=== PATIENT | female | born 1930 | race Caucasian/White ===

== ENCOUNTER 2017-11-05 19:06 | Inpatient (IN) | payer OTHER, MEDICAID ==
[~2017-11-05] VITALS: Ht 152.4 cm; Wt 83.5 kg
[2017-11-05 19:16] VITALS: BP 141/75
[2017-11-05 20:22] LABS: BASOPHILS % (AUTO) 0.7 % (0.0-2.0); EOSINOPHILS # (AUTO) 0.1 K/uL (0-0.4); EOSINOPHILS % (AUTO) 0.7 % (0.0-4.0); HEMATOCRIT 31.4 % (36-48); LYMPHOCYTES % (AUTO) 14.1 % (20.5-51.1); MEAN CORPUSCULAR HEMOGLOBIN 28 pg (27-31); MEAN CORPUSCULAR HGB CONC 32 g/dL (33-37); MEAN CORPUSCULAR VOLUME 87.8 fL (80-94); MONOCYTES # (AUTO) 0.7 K/uL (0.8-1.0); MONOCYTES % (AUTO) 10.3 % (1.7-9.3); NEUTROPHILS # (AUTO) 5.2 K/uL (1.8-7.7); NEUTROPHILS % (AUTO) 74.2 % (42.2-75.2); PLATELET COUNT (AUTO) 270 K/uL (140-450); RED BLOOD CELL COUNT(AUTO) 3.57 MIL/uL (4.20-5.40); RED CELL DISTRIBUTION WIDTH 15.5 % (11.6-13.7); WHITE BLOOD COUNT (AUTO) 7.1 K/uL (4.8-10.8)
[2017-11-05 20:32] LABS: ALBUMIN 3.7 g/dL (3.4-5.0); ASPARTATE AMINOTRANSFERASE 16 U/L (15-37); CARBON DIOXIDE 26.8 mmol/L (21-32); CHLORIDE 100 mmol/L (98-107); CREATININE 2.7 mg/dL (0.6-1.3); GLUCOSE 113 mg/dL (74-106); SODIUM SERUM 137 mmol/L (136-145); TOTAL BILIRUBIN 0.5 mg/dL (0.0-1.0); UREA NITROGEN, BLOOD 21 mg/dL (7-18)
[2017-11-05 20:37] LABS: ANION GAP 13.2 (8-16)
[2017-11-05] MEDS ORDERED: POTASSIUM CHLORIDE 10 MEQ TABER PO ONE (21:25)
[2017-11-05] MEDS ORDERED: LOVA10TA PO (21:51)
[2017-11-05] MEDS ORDERED: HYDR100T79 PO (21:51)
[2017-11-05] MEDS ORDERED: ISOS10TA9 PO (21:51)
[2017-11-05] MEDS ORDERED: FERR-252 PO (21:51)
[2017-11-05] MEDS ORDERED: VITD1000 PO (21:51)
[2017-11-05] MEDS ORDERED: ASPI81CT89 PO (21:51)
[2017-11-05] MEDS ORDERED: METO25TE2 PO (21:51)
[2017-11-05] MEDS ORDERED: OMEP20TC12 PO (21:51)
[2017-11-05] MEDS ORDERED: NACL 0.9% 1,000 ML IV SCH (21:56)
[2017-11-05] MEDS ORDERED: ACETAMINOPHEN 325 MG TAB PO PRN (22:00)
[2017-11-05] MEDS ORDERED: HYDROcodone/APAP 7.5/325 MG 1 TAB PO PRN (22:00)
[2017-11-05] MEDS ORDERED: ONDANSETRON 4 MG/2 ML VIAL IVP PRN (22:00)
[2017-11-05 22:31] LABS: PROTHROMBIN TIME 10.4 secs (10.8-13.4)
[2017-11-05 22:46] LABS: CHOL/HDL RATIO 2.5 (1-4.5); FREE T4 (FREE THYROXINE) 1.16 ng/dL (0.76-1.46); PHOSPHORUS 2.9 mg/dL (2.5-4.9); THYROID STIMULATING HORMONE 4.33 uIU/mL (0.34-3.74)
[2017-11-05 22:50] VITALS: BP 156/72
[2017-11-06] VITALS: BP 151/67
[2017-11-06 04:00] VITALS: BP 141/69
[2017-11-06 06:33] LABS: BASOPHILS % (AUTO) 0.6 % (0.0-2.0); EOSINOPHILS # (AUTO) 0.1 K/uL (0-0.4); EOSINOPHILS % (AUTO) 1.4 % (0.0-4.0); HEMATOCRIT 29.3 % (36-48); HEMOGLOBIN 9.6 g/dL (12.0-16.0); LYMPHOCYTES # (AUTO) 1.5 K/uL (2.5-16.5); LYMPHOCYTES % (AUTO) 29.9 % (20.5-51.1); MEAN CORPUSCULAR HEMOGLOBIN 30 pg (27-31); MEAN CORPUSCULAR HGB CONC 33 g/dL (33-37); MEAN CORPUSCULAR VOLUME 92.4 fL (80-94); MONOCYTES # (AUTO) 0.5 K/uL (0.8-1.0); MONOCYTES % (AUTO) 9.3 % (1.7-9.3); NEUTROPHILS % (AUTO) 58.8 % (42.2-75.2); PLATELET COUNT (AUTO) 248 K/uL (140-450); RED BLOOD CELL COUNT(AUTO) 3.17 MIL/uL (4.20-5.40); RED CELL DISTRIBUTION WIDTH 15.6 % (11.6-13.7); WHITE BLOOD COUNT (AUTO) 5.1 K/uL (4.8-10.8)
[2017-11-06 06:50] LABS: ANION GAP 14.3 (8-16); CARBON DIOXIDE 27.3 mmol/L (21-32); CHLORIDE 104 mmol/L (98-107); CREATININE 3.1 mg/dL (0.6-1.3); GLUCOSE 85 mg/dL (74-106); POTASSIUM 3.6 mmol/L (3.5-5.1); SODIUM SERUM 142 mmol/L (136-145); UREA NITROGEN, BLOOD 22 mg/dL (7-18)
[2017-11-06 06:58] LABS: PHOSPHORUS 3.3 mg/dL (2.5-4.9)
[2017-11-06 08:00] VITALS: BP 162/63
[2017-11-06] MEDS: VITAMIN B COMPLEX W/C 1 TAB PO SCH (09:02)
[2017-11-06] MEDS: VITAMIN D 400 IU TAB PO SCH (09:02)
[2017-11-06] MEDS: ECOTRIN 81 MG TABEC PO SCH (09:03)
[2017-11-06] MEDS: DOCUSATE SODIUM 100 MG GELCAP PO SCH ×2 (09:03→20:41)
[2017-11-06] MEDS: METOPROLOL SUCCINATE 50 MG TABER PO SCH (09:03)
[2017-11-06] MEDS: FERROUS SULFATE 325 MG TABEC PO SCH (09:03)
[2017-11-06] MEDS: PANTOPRAZOLE 40 MG TABEC PO SCH (09:04)
[2017-11-06] MEDS: ISOSORBIDE DINITRATE 10 MG TAB PO SCH ×3 (09:04→16:43)
[2017-11-06] MEDS: hydrALAZINE 25 MG TAB PO SCH ×3 (09:05→16:43)
[2017-11-06 12:00] VITALS: BP 153/57
[2017-11-06 16:00] VITALS: BP 131/52
[2017-11-06 20:00] VITALS: BP 121/53
[2017-11-06] MEDS: ATORVASTATIN 20 MG TAB PO SCH (20:42)
[2017-11-07] VITALS: BP 115/28
[2017-11-07 04:00] VITALS: BP 135/47
[2017-11-07 06:13] LABS: BASOPHILS % (AUTO) 0.9 % (0.0-2.0); EOSINOPHILS # (AUTO) 0.2 K/uL (0-0.4); EOSINOPHILS % (AUTO) 3.1 % (0.0-4.0); HEMATOCRIT 27.3 % (36-48); HEMOGLOBIN 9.2 g/dL (12.0-16.0); LYMPHOCYTES # (AUTO) 1.9 K/uL (2.5-16.5); LYMPHOCYTES % (AUTO) 37.9 % (20.5-51.1); MEAN CORPUSCULAR HEMOGLOBIN 32 pg (27-31); MEAN CORPUSCULAR HGB CONC 34 g/dL (33-37); MEAN CORPUSCULAR VOLUME 94.1 fL (80-94); MONOCYTES # (AUTO) 0.6 K/uL (0.8-1.0); NEUTROPHILS # (AUTO) 2.3 K/uL (1.8-7.7); NEUTROPHILS % (AUTO) 46.1 % (42.2-75.2); PLATELET COUNT (AUTO) 218 K/uL (140-450); RED CELL DISTRIBUTION WIDTH 15.5 % (11.6-13.7); WHITE BLOOD COUNT (AUTO) 4.9 K/uL (4.8-10.8)
[2017-11-07 08:00] VITALS: BP 149/43
[2017-11-07] MEDS: ECOTRIN 81 MG TABEC PO SCH (08:41)
[2017-11-07] MEDS: VITAMIN B COMPLEX W/C 1 TAB PO SCH (08:41)
[2017-11-07] MEDS: FERROUS SULFATE 325 MG TABEC PO SCH (08:42)
[2017-11-07] MEDS: hydrALAZINE 25 MG TAB PO SCH ×3 (08:42→17:00)
[2017-11-07] MEDS: VITAMIN D 400 IU TAB PO SCH (08:42)
[2017-11-07] MEDS: DOCUSATE SODIUM 100 MG GELCAP PO SCH ×2 (08:42→21:07)
[2017-11-07] MEDS: PANTOPRAZOLE 40 MG TABEC PO SCH (08:42)
[2017-11-07] MEDS: METOPROLOL SUCCINATE 50 MG TABER PO SCH (08:43)
[2017-11-07] MEDS: ISOSORBIDE DINITRATE 10 MG TAB PO SCH ×3 (08:43→17:00)
[2017-11-07 08:55] LABS: CHLORIDE 105 mmol/L (98-107); POTASSIUM 3.8 mmol/L (3.5-5.1); SODIUM SERUM 142 mmol/L (136-145)
[2017-11-07 08:56] LABS: ANION GAP 16.4 (8-16); CARBON DIOXIDE 24.4 mmol/L (21-32); GLUCOSE 88 mg/dL (74-106)
[2017-11-07 09:01] LABS: MAGNESIUM 2.2 mg/dL (1.8-2.4); PHOSPHORUS 4.2 mg/dL (2.5-4.9)
[2017-11-07 09:08] LABS: CREATININE 4.1 mg/dL (0.6-1.3); UREA NITROGEN, BLOOD 34 mg/dL (7-18)
[2017-11-07 12:00] VITALS: BP 150/41
[2017-11-07 16:00] VITALS: BP 144/43
[2017-11-07 20:00] VITALS: BP 134/43
[2017-11-07] MEDS: ATORVASTATIN 20 MG TAB PO SCH (21:08)
[2017-11-08] VITALS: BP 146/39
[2017-11-08 04:00] VITALS: BP 153/47
[2017-11-08] MEDS ORDERED: LORazepam 2 MG/ML VIAL IVP SCH (04:00)
[2017-11-08 06:23] LABS: EOSINOPHILS # (AUTO) 2.2 K/uL (0-0.4); HEMATOCRIT 27.3 % (36-48); HEMOGLOBIN 9.2 g/dL (12.0-16.0); LYMPHOCYTES # (AUTO) 0.7 K/uL (2.5-16.5); MEAN CORPUSCULAR HEMOGLOBIN 32 pg (27-31); MEAN CORPUSCULAR HGB CONC 34 g/dL (33-37); MEAN CORPUSCULAR VOLUME 95.2 fL (80-94); MONOCYTES # (AUTO) 0.3 K/uL (0.8-1.0); NEUTROPHILS # (AUTO) 1.8 K/uL (1.8-7.7); PLATELET COUNT (AUTO) 218 K/uL (140-450); RED BLOOD CELL COUNT(AUTO) 2.87 MIL/uL (4.20-5.40); RED CELL DISTRIBUTION WIDTH 15.1 % (11.6-13.7); WHITE BLOOD COUNT (AUTO) 4.9 K/uL (4.8-10.8)
[2017-11-08 07:00] LABS: ANION GAP 14.1 (8-16); CARBON DIOXIDE 25.7 mmol/L (21-32); CHLORIDE 104 mmol/L (98-107); GLUCOSE 94 mg/dL (74-106); POTASSIUM 3.8 mmol/L (3.5-5.1); SODIUM SERUM 140 mmol/L (136-145); UREA NITROGEN, BLOOD 43 mg/dL (7-18)
[2017-11-08 08:00] VITALS: BP 165/53
[2017-11-08] MEDS ORDERED: LIDOCAINE 4% 40 MG/ML BTL TP ONE (08:00)
[2017-11-08 08:30] LABS: CREATININE 4.7 mg/dL (0.6-1.3)
[2017-11-08] MEDS: hydrALAZINE 25 MG TAB PO SCH ×3 (09:00→17:16)
[2017-11-08] MEDS: ISOSORBIDE DINITRATE 10 MG TAB PO SCH ×3 (09:00→17:16)
[2017-11-08] MEDS: PANTOPRAZOLE 40 MG TABEC PO SCH (09:00)
[2017-11-08] MEDS: FERROUS SULFATE 325 MG TABEC PO SCH (09:00)
[2017-11-08] MEDS: VITAMIN B COMPLEX W/C 1 TAB PO SCH (09:00)
[2017-11-08] MEDS: DOCUSATE SODIUM 100 MG GELCAP PO SCH (09:00)
[2017-11-08] MEDS: ECOTRIN 81 MG TABEC PO SCH (09:00)
[2017-11-08] MEDS ORDERED: EPOETIN ALFA 10,000 UNITS/ML VIAL SUBQ SCH (09:00)
[2017-11-08] MEDS: VITAMIN D 400 IU TAB PO SCH (09:00)
[2017-11-08 12:00] VITALS: BP 149/43
[2017-11-08 16:00] VITALS: BP 141/50
== END 2017-11-08 19:15 | disposition home or self-care (01) | DRG 682 ==
LOC: MED 19:06 → MTU 21:58
PROVIDERS: ADMIT Family Medicine Sports Medicine; ATTEND Family Medicine Sports Medicine
PROC: 5A1D70Z Performance of Urinary Filtration, Intermittent, Less than 6 Hours Per Day (ICD-10-PCS; principal; 2017-11-08)
DX: N17.0 Acute kidney failure with tubular necrosis (principal); I50.43 Acute on chronic combined systolic (congestive) and diastolic (congestive) heart failure; I13.2 Hypertensive heart and chronic kidney disease with heart failure and with stage 5 chronic kidney disease, or end stage renal disease; E11.22 Type 2 diabetes mellitus with diabetic chronic kidney disease; G90.9 Disorder of the autonomic nervous system, unspecified; I44.1 Atrioventricular block, second degree; D63.1 Anemia in chronic kidney disease; N18.6 End stage renal disease; I49.8 Other specified cardiac arrhythmias; E87.6 Hypokalemia; R42 Dizziness and giddiness; M19.90 Unspecified osteoarthritis, unspecified site; E66.9 Obesity, unspecified; E78.5 Hyperlipidemia, unspecified; K21.9 Gastro-esophageal reflux disease without esophagitis; E02 Subclinical iodine-deficiency hypothyroidism; Z99.2 Dependence on renal dialysis; Z86.73 Personal history of transient ischemic attack (TIA), and cerebral infarction without residual deficits; Z79.82 Long term (current) use of aspirin; Z79.899 Other long term (current) drug therapy; Z98.49 Cataract extraction status, unspecified eye; Z90.710 Acquired absence of both cervix and uterus; Z68.34 Body mass index [BMI] 34.0-34.9, adult
CPT/HCPCS: 36415; 70450; 71045; 80048; 80053; 82150; 83036; 83690; 83735; 83880; 84100; 84439; 84443; 84484; 85025; 85610; 85730; 87081; 93005; 93880; 97110; 97116; 97140; 97530; 97535; 99285; J0885; J7030; Q0092